=== PATIENT | female | born 1945 | race Caucasian/White ===

== ENCOUNTER → 2016-06-05 | Outpatient (CLI) | payer MEDICARE, BC ==
[~2016-06-05] MED LIST: ALBU8.5H5 INH; ASCO10006 PO; ASPI-496 PO; CALC200T37 PO; CHOL400T38 PO; CINN500C2 PO; DESL5TAB PO; DIGO250T86 PO; DILT300C2 PO; DOCU100T3 PO; ESTR0.3T PO; FISH1CAP PO; FURO40TA6 PO; LEVO75TA PO; LIFE PO; LISI40TA PO; MINO2.5T PO; MULT-658 PO; NIAC500T9 PO; POTA10TA11 PO; TAMS-11 PO; UBID100C24 PO; VIT1CAPS6 PO; VITA1TAB65 PO; [UNRECOGNIZED DRUG - OTHER] PO; [UNRECOGNIZED DRUG - OTHER] PO; magnesium PO; vitamin a PO
== END | disposition home or self-care (01) ==
LOC: CVU 06:49
PROVIDERS: ATTEND Internal Medicine Cardiovascular Disease
DX: I11.0 Hypertensive heart disease with heart failure (principal); I50.30 Unspecified diastolic (congestive) heart failure; I08.1 Rheumatic disorders of both mitral and tricuspid valves; I37.1 Nonrheumatic pulmonary valve insufficiency; I51.7 Cardiomegaly; I65.23 Occlusion and stenosis of bilateral carotid arteries; Z87.891 Personal history of nicotine dependence
CPT/HCPCS: 93306; 93880; 93978

== ENCOUNTER → 2019-04-25 | Outpatient (CLI) | payer MEDICARE, BC ==
[~2019-04-25] MED LIST changes: -ASCO10006 PO; +CALC-680 PO; -CALC200T37 PO; -CHOL400T38 PO; +CHOL400T55 PO; +[UNRECOGNIZED DRUG - CODE] PO
== END | disposition home or self-care (01) ==
LOC: CFH 08:48
PROVIDERS: ATTEND Internal Medicine Cardiovascular Disease
DX: I08.8 Other rheumatic multiple valve diseases (principal); I11.9 Hypertensive heart disease without heart failure
CPT/HCPCS: 93306

== ENCOUNTER 2020-09-21 07:28 | Outpatient (CLI) | payer MEDICARE, BC ==
[~2020-09-21 07:28] MED LIST changes: -LISI40TA PO; +LISI40TA9 PO
[2020-09-21] MEDS ORDERED: REGADENOSON 0.4 MG/5 ML SYRINGE ONE (11:36)
== END 2020-09-21 23:59 | disposition home or self-care (01) ==
LOC: CFH 07:28
PROVIDERS: ATTEND Internal Medicine Cardiovascular Disease
DX: Z01.810 Encounter for preprocedural cardiovascular examination (principal)
CPT/HCPCS: 78452; 93017; A9502; J2785

== ENCOUNTER 2020-11-09 08:03 | Inpatient (IN) | payer MEDICARE, BC ==
[2020-11-06 15:28] LABS: BASOPHILS % (AUTO) 1 % (0-1); EOSINOPHILS % (AUTO) 3 % (1-7); LYMPHOCYTES % (AUTO) 28 % (22-44); MEAN CORPUSCULAR HGB CONC 33.8 g/dL (32.4-35.8); MEAN PLATELET VOLUME 9.1 fL (7.4-10.4); MONOCYTES % (AUTO) 7 % (2-9); NEUTROPHILS % (AUTO) 62 % (42-75); PLATELET COUNT 173 x10^3/uL (130-400); RED BLOOD COUNT 5.11 x10^6/uL (3.82-5.3); RED CELL DISTRIBUTION WIDTH 14.1 % (9.6-15.2)
[2020-11-06 15:39] LABS: ANION GAP 5 mmol/L (5-15); CALCIUM 9.5 mg/dL (8.5-10.1); CHLORIDE 108 mmol/L (98-107)
[2020-11-06 15:40] LABS: ALANINE AMINOTRANSFERASE 41 U/L (12-78); ALBUMIN 3.8 g/dL (3.4-5.0); ALKALINE PHOSPHATASE 55 U/L (45-117); BILIRUBIN,TOTAL 0.4 mg/dL (0.2-1.0); CREATININE 0.78 mg/dL (0.55-1.02)
[~2020-11-09] VITALS: Ht 162.6 cm; Wt 68.9 kg
[~2020-11-09 08:03] MED LIST changes: +ALBU18HF INH; +ASPI81TA45 PO; +BIOT1TAB2 PO; +Beet Root PO; +COCO1000 PO; +GELA650C4 PO; +HYDROCHLOROTH12.5 MG PO; +LABE100T6 PO; +Vitamin D3 PO; +ZINC1POW PO; +ferrous sulfate PO
[2020-11-09] MEDS ORDERED: LACTATED RINGERS 1,000 ML IV SCH (09:00)
[2020-11-09] MEDS ORDERED: CHLORHEXIDINE 15 ML UDC PO ONE (09:00)
[2020-11-09] MEDS ORDERED: BUPIVACAINE/PF 0.5% ONE (10:25)
[2020-11-09] MEDS ORDERED: HEPARIN 5,000 UNITS/ML, 1ML ONE (10:26)
[2020-11-09] MEDS ORDERED: HEPARIN 1,000 UNITS/ML, 10ML ONE (10:26)
[2020-11-09] MEDS ORDERED: PROTAMINE SULFATE 10 MG/ML, 5ML ONE (10:26)
[2020-11-09] MEDS ORDERED: FENTANYL PF 250 MCG/5ML ONE (10:53)
[2020-11-09] MEDS ORDERED: HYDROmorphone 2 MG/ML, 1ML IVPush PRN (12:30)
[2020-11-09] MEDS ORDERED: hydrALAzine 20 MG/ML, 1ML IV PRN (12:30)
[2020-11-09] MEDS ORDERED: PROMETHAZINE 25 MG/ML, 1ML IV PRN (12:30)
[2020-11-09] MEDS ORDERED: LABETALOL 5MG/ML, 20ML IV PRN (12:30)
[2020-11-09] MEDS ORDERED: ALBUTEROL SULFATE 2.5 MG/3 ML NPPB PRN (12:30)
[2020-11-09] MEDS ORDERED: ACETAMINOPHEN 325 MG TABLET PO PRN ×2 (12:30→13:00)
[2020-11-09] MEDS ORDERED: DIAZEPAM 5 MG/ML, 2ML IVPush PRN (12:30)
[2020-11-09] MEDS ORDERED: OXYcodone 5 MG/5 ML ORAL.SOL UDC PO PRN (12:30)
[2020-11-09] MEDS ORDERED: FENTANYL PF 100 MCG/2ML IV PRN (12:30)
[2020-11-09] MEDS ORDERED: MEPERIDINE/PF 25MG/0.5ML IVPush PRN (12:30)
[2020-11-09] MEDS ORDERED: KETOROLAC 30 MG/1 ML IV PRN (12:30)
[2020-11-09] MEDS ORDERED: SUCCINYLCHOLINE 20 MG/ML, 10ML ONE (12:54)
[2020-11-09] MEDS ORDERED: ONDANSETRON 2MG/ML, 2ML ONE (12:54)
[2020-11-09] MEDS ORDERED: CEFAZOLIN 1,000 MG ONE (12:54)
[2020-11-09] MEDS ORDERED: ROCURONIUM 10MG/ML,5ML ONE (12:54)
[2020-11-09] MEDS ORDERED: NEOSTIGMINE 1 MG/ML, 10ML ONE (12:54)
[2020-11-09] MEDS ORDERED: PROPOFOL 10 MG/ML, 20ML ONE (12:54)
[2020-11-09] MEDS ORDERED: GLYCOPYRROLATE 0.2MG/1ML, 5ML ONE (12:54)
[2020-11-09] MEDS ORDERED: hydrALAzine 20 MG/ML, 1ML ONE (12:56)
[2020-11-09] MEDS ORDERED: morphine SULFATE 10 MG/ML, 1ML IV PRN (13:00)
[2020-11-09] MEDS ORDERED: COCONUT OIL 1000 MG PO SCH (13:00)
[2020-11-09] MEDS: LABETALOL 5MG/ML, 20ML IVPush SCH ×2 (13:00→21:00)
[2020-11-09] MEDS ORDERED: HYDROcodone/APAP 5/325 TABLET PO PRN (13:00)
[2020-11-09] MEDS ORDERED: ALBUTEROL SULFATE 2.5 MG/3 ML HHN PRN (13:30)
[2020-11-09] MEDS ORDERED: TEMPLATE NON-FORMULARY MED. (Ubidecarenone (Coq-10) 100 MG) PO SCH (16:00)
[2020-11-09] MEDS ORDERED: CINNAMON BARK 500 MG PO SCH (16:00)
[2020-11-09 19:20] VITALS: BP 124/63
[2020-11-09] MEDS ORDERED: DIGOXIN 0.25 MG TABLET PO SCH (21:00)
[2020-11-09] MEDS ORDERED: DILTIAZEM 300 MG CAP.ER.24H PO SCH (21:00)
[2020-11-09] MEDS ORDERED: NIACIN 500 MG TABLET.ER PO SCH (21:00)
[2020-11-09] MEDS ORDERED: ASPIRIN 81 MG TABLET EC PO SCH (21:00)
[2020-11-09] MEDS ORDERED: DIGOXIN 0.125 MG TABLET ONE (21:04)
[2020-11-09] MEDS: CEFAZOLIN PMX 1GM/50ML 50 ML IVPB SCH (21:16)
[2020-11-09] MEDS: DOCUSATE 100 MG CAPSULE PO SCH ×2 (21:17→21:26)
[2020-11-09] MEDS: LISINOPRIL 40 MG TABLET PO SCH (21:17)
[2020-11-09] MEDS: OMEGA-3/FISH OIL CAPSULE PO SCH ×2 (21:17→21:27)
[2020-11-09] MEDS: MINOXIDIL 2.5 MG TABLET PO SCH (21:18)
[2020-11-09] MEDS: LACTATED RINGERS 1,000 ML IV SCH (21:21)
[2020-11-09] MEDS: LABETALOL 100 MG TABLET PO SCH (21:26)
[2020-11-10 00:27] VITALS: BP 121/51
[2020-11-10] MEDS: LABETALOL 5MG/ML, 20ML IVPush SCH ×2 (03:07→13:00)
[2020-11-10 04:13] VITALS: BP 121/57
[2020-11-10] MEDS: CEFAZOLIN PMX 1GM/50ML 50 ML IVPB SCH (04:56)
[2020-11-10] MEDS ORDERED: LEVOTHYROXINE 75 MCG TABLET PO SCH (06:00)
[2020-11-10] MEDS ORDERED: ASPIRIN 81 MG TABLET EC PO SCH (06:00)
[2020-11-10 07:05] VITALS: BP 114/46
[2020-11-10] MEDS ORDERED: CELERY EX PO SCH (09:00)
[2020-11-10] MEDS ORDERED: MULTIVITAMIN 1 TABLET PO SCH (09:00)
[2020-11-10] MEDS ORDERED: POTASSIUM CHLORIDE 20 MEQ TAB.ER.PRT PO SCH (09:00)
[2020-11-10] MEDS ORDERED: ESTROGEN CONJUGATED 0.3 MG TABLET PO SCH (09:00)
[2020-11-10] MEDS ORDERED: ENOXAPARIN 40 MG/0.4 ML SQ SCH (09:00)
[2020-11-10] MEDS ORDERED: GRP E PO SCH (09:00)
[2020-11-10] MEDS: LABETALOL 100 MG TABLET PO SCH (09:00)
[2020-11-10] MEDS ORDERED: [UNRECOGNIZED DRUG - OTHER] PO SCH (09:00)
[2020-11-10] MEDS ORDERED: MAGNESIUM OXIDE 400 MG TABLET PO SCH (09:00)
[2020-11-10] MEDS ORDERED: BEET ROOT PO SCH (09:00)
[2020-11-10] MEDS ORDERED: VIT C PO SCH (09:00)
[2020-11-10] MEDS ORDERED: FUROSEMIDE 40 MG TABLET PO SCH (09:00)
[2020-11-10] MEDS ORDERED: TEMPLATE NON-FORMULARY MED. (Biotin** 1 MG) PO SCH (09:00)
[2020-11-10] MEDS ORDERED: ASCORBIC ACID 500 MG TABLET PO SCH (09:00)
[2020-11-10] MEDS ORDERED: CHERRY PO SCH (09:00)
[2020-11-10] MEDS: MINOXIDIL 2.5 MG TABLET PO SCH (09:00)
[2020-11-10] MEDS ORDERED: MULTIVITS,STRESS FORMULA 1 TABLET PO SCH (09:00)
[2020-11-10] MEDS ORDERED: GELATIN 1300 MG PO SCH (09:00)
[2020-11-10] MEDS ORDERED: ZINC SULFATE 220 MG CAPSULE PO SCH (09:00)
[2020-11-10] MEDS ORDERED: LEVOCETIRIZINE 5 MG TAB PO SCH (09:00)
[2020-11-10] MEDS: LACTATED RINGERS 1,000 ML IV SCH (09:20)
[2020-11-10 09:42] VITALS: BP 115/49
[2020-11-10] MEDS: DOCUSATE 100 MG CAPSULE PO SCH (09:44)
[2020-11-10] MEDS: OMEGA-3/FISH OIL CAPSULE PO SCH (09:44)
[2020-11-10] MEDS: LISINOPRIL 40 MG TABLET PO SCH (10:42)
[2020-11-10] MEDS ORDERED: HYDROCHLOROTHIAZIDE 12.5 MG CAPSULE PO SCH (12:00)
[2020-11-10 12:52] VITALS: BP 108/38
[2020-11-10 13:12] VITALS: BP 132/52
[2020-11-12] MEDS ORDERED: FERROUS SULFATE 325 MG TABLET PO SCH (09:00)
[2020-11-12] MEDS ORDERED: CHOLECALCIFEROL 5,000u TAB PO SCH (09:00)
== END 2020-11-10 14:00 | disposition home or self-care (01) | DRG 39 ==
LOC: ORIP 08:03 → 4NE 15:06
PROVIDERS: ADMIT Surgery; ATTEND Surgery
PROC: 03UK0JZ Supplement Right Internal Carotid Artery with Synthetic Substitute, Open Approach (ICD-10-PCS; 2020-11-09)
PROC: 03HY32Z Insertion of Monitoring Device into Upper Artery, Percutaneous Approach (ICD-10-PCS; 2020-11-09)
PROC: 03CK0ZZ Extirpation of Matter from Right Internal Carotid Artery, Open Approach (ICD-10-PCS; principal; 2020-11-09 10:00)
DX: I65.21 Occlusion and stenosis of right carotid artery (principal); Z88.0 Allergy status to penicillin
CPT/HCPCS: 36415; 71046; 80053; 80162; 85025; 86850; 86900; 93005; C1729; G0378; J0690; J1644; J1650; J2405; J2704; J2710; J2720; J3010; C1781; J0330; J0360; J7120